=== PATIENT | male | born 1975 | race Caucasian/White ===

== ENCOUNTER 2017-01-06 02:05 | Inpatient (IN) | payer MEDICARE, MEDICAID ==
[~2017-01-06] VITALS: Ht 185.4 cm; Wt 116.6 kg
[~2017-01-06 02:05] MED LIST: DIVA500T52 PO; QUET300T2 PO
[2017-01-06 03:03] LABS: BASOPHILS # (AUTO) 0.03 K/uL (0.00-0.20); BASOPHILS % (AUTO) 0.4 % (0.0-2.0); EOSINOPHILS # (AUTO) 0.15 K/uL (0.00-0.70); EOSINOPHILS % (AUTO) 2.46 % (1.0-6.0); HEMATOCRIT 43.9 % (41-53); HEMOGLOBIN 14.6 g/dL (13.5-17.5); LYMPHOCYTES # (AUTO) 1.8 K/uL (1.0-4.8); LYMPHOCYTES % (AUTO) 30.1 % (22.0-44.0); MEAN CORPUSCULAR HEMOGLOBIN 29.3 pg (26.0-34.0); MEAN CORPUSCULAR HGB CONC 33.3 G/dL (31.0-37.0); MEAN CORPUSCULAR VOLUME 88 fL (80-100); MONOCYTES # (AUTO) 0.3 K/uL (0.1-1.0); MONOCYTES % (AUTO) 5.2 % (2.0-9.0); NEUTROPHILS # (AUTO) 3.8 K/uL (1.8-7.7); NEUTROPHILS % (AUTO) 61.8 % (40.0-70.0); PLATELET COUNT (AUTO) 170 K/uL (150-450); RED BLOOD CELL COUNT(AUTO) 4.98 MIL/uL (4.50-5.90); RED CELL DISTRIBUTION WIDTH 14.7 % (11.5-14.5); WHITE BLOOD COUNT (AUTO) 6.1 K/uL (4.5-11.0)
[2017-01-06 03:07] LABS: ANION GAP 10 mmol/L (8-16); CALCIUM, TOTAL 8.1 mg/dL (8.8-10.5); CARBON DIOXIDE 26 mmol/L (22-29); CHLORIDE 101 mmol/L (98-107); CREATININE 0.92 mg/dL (0.60-1.30); GLOMERULAR FILTR. RATE CALC > 60 mL/min (>60); POTASSIUM 3.1 mmol/L (3.5-5.1); SODIUM SERUM 137 mmol/L (136-145); UREA NITROGEN, BLOOD 5 mg/dL (7-18)
[2017-01-06 03:13] LABS: ALANINE AMINOTRANSFERASE 41 U/L (12-78); ALBUMIN 3.7 g/dL (3.4-5.0); ASPARTATE AMINOTRANSFERASE 24 U/L (15-37); BILIRUBIN,TOTAL 0.3 mg/dL (0.1-1.0)
[2017-01-06 03:28] LABS: VALPROIC ACID < 3 mcg/mL (50-100)
[2017-01-06] MEDS ORDERED: LORazepam 2 MG TABLET PO ONE (04:00)
[2017-01-06] MEDS ORDERED: HALOPERIDOL 5 MG TABLET PO ONE (04:00)
[2017-01-06] MEDS ORDERED: DiphenhydrAMINE HCL 25 MG CAPSULE PO ONE (04:00)
[2017-01-06 08:45] VITALS: BP 110/78
[2017-01-06] MEDS ORDERED: POTASSIUM CHLORIDE 20 MEQ ER TABLET PO ONE (09:00)
[2017-01-06] MEDS: DIVALPROEX SODIUM 500 MG ER TABLET PO SCH ×2 (10:24→20:34)
[2017-01-06] MEDS: QUEtiapine FUMARATE 300 MG TABLET PO SCH ×2 (10:24→20:34)
[2017-01-06] MEDS ORDERED: INFLUENZA VIRUS VACCINE QVS 2016-17 (3YR+)/PF 60 MCG/0.5 ML SYRINGE IM ONE (11:00)
[2017-01-07 06:13] VITALS: BP 131/75
[2017-01-07 08:05] VITALS: BP 128/65
[2017-01-07] MEDS: DIVALPROEX SODIUM 500 MG ER TABLET PO SCH ×2 (08:18→20:30)
[2017-01-07] MEDS: QUEtiapine FUMARATE 300 MG TABLET PO SCH ×2 (08:19→20:30)
[2017-01-07 08:34] LABS: ANION GAP 5 mmol/L (8-16); CALCIUM, TOTAL 8.9 mg/dL (8.8-10.5); CARBON DIOXIDE 32 mmol/L (22-29); CHLORIDE 102 mmol/L (98-107); CREATININE 0.94 mg/dL (0.60-1.30); GLOMERULAR FILTR. RATE CALC > 60 mL/min (>60); POTASSIUM 3.9 mmol/L (3.5-5.1); SODIUM SERUM 139 mmol/L (136-145); UREA NITROGEN, BLOOD 10 mg/dL (7-18)
[2017-01-07 16:00] VITALS: BP 110/64
[2017-01-08 06:45] VITALS: BP 116/70
[2017-01-08 08:06] VITALS: BP 118/64
[2017-01-08] MEDS: HALOPERIDOL 5 MG TABLET PO PRN (09:13)
[2017-01-08] MEDS: LORazepam 2 MG TABLET PO PRN (09:13)
[2017-01-08] MEDS: DIVALPROEX SODIUM 500 MG ER TABLET PO SCH ×2 (09:13→20:42)
[2017-01-08] MEDS: QUEtiapine FUMARATE 300 MG TABLET PO SCH ×2 (09:13→20:43)
[2017-01-08 16:00] VITALS: BP 102/62
[2017-01-09 06:17] VITALS: BP 115/72
[2017-01-09 08:04] VITALS: BP 132/71
[2017-01-09] MEDS: DIVALPROEX SODIUM 500 MG ER TABLET PO SCH ×2 (08:34→20:28)
[2017-01-09] MEDS: QUEtiapine FUMARATE 300 MG TABLET PO SCH ×2 (08:34→20:28)
[2017-01-09] MEDS: HALOPERIDOL 5 MG TABLET PO PRN (08:34)
[2017-01-09] MEDS: LORazepam 2 MG TABLET PO PRN ×2 (08:34→20:28)
[2017-01-09 16:37] VITALS: BP 97/65
[2017-01-09 19:58] VITALS: BP 105/62
[2017-01-10 05:29] VITALS: BP 112/75
[2017-01-10 08:43] VITALS: BP 103/65
[2017-01-10] MEDS: LORazepam 2 MG TABLET PO PRN ×2 (08:53→20:30)
[2017-01-10] MEDS: HALOPERIDOL 5 MG TABLET PO PRN (08:53)
[2017-01-10] MEDS: DIVALPROEX SODIUM 500 MG ER TABLET PO SCH ×2 (08:53→20:30)
[2017-01-10] MEDS: QUEtiapine FUMARATE 300 MG TABLET PO SCH ×2 (08:53→20:30)
[2017-01-10] MEDS ORDERED: BISACODYL 5 MG EC TABLET PO PRN (13:30)
[2017-01-10 16:00] VITALS: BP 110/68
[2017-01-11 07:10] VITALS: BP 114/72
[2017-01-11 08:22] VITALS: BP 120/68
[2017-01-11] MEDS ORDERED: ACETAMINOPHEN 500 MG TABLET PO PRN (09:30)
[2017-01-11] MEDS: LORazepam 2 MG TABLET PO PRN ×2 (09:39→20:23)
[2017-01-11] MEDS: QUEtiapine FUMARATE 300 MG TABLET PO SCH ×2 (09:39→20:23)
[2017-01-11] MEDS: DIVALPROEX SODIUM 500 MG ER TABLET PO SCH ×2 (09:39→20:22)
[2017-01-11 16:00] VITALS: BP 121/76
[2017-01-11] MEDS: ZOLPIDEM TARTRATE 10 MG TABLET PO PRN (20:23)
[2017-01-12 06:48] VITALS: BP 136/67
[2017-01-12 08:05] VITALS: BP 137/84
[2017-01-12] MEDS: QUEtiapine FUMARATE 300 MG TABLET PO SCH ×2 (09:22→20:31)
[2017-01-12] MEDS: DIVALPROEX SODIUM 500 MG ER TABLET PO SCH ×2 (09:22→20:31)
[2017-01-12 16:16] VITALS: BP 119/68
[2017-01-13 03:14] VITALS: BP 124/72
[2017-01-13 08:17] VITALS: BP 136/83
[2017-01-13] MEDS: QUEtiapine FUMARATE 300 MG TABLET PO SCH ×2 (08:31→20:46)
[2017-01-13] MEDS: DIVALPROEX SODIUM 500 MG ER TABLET PO SCH ×2 (08:31→20:46)
[2017-01-13] MEDS: LORazepam 2 MG TABLET PO PRN (08:31)
[2017-01-13] MEDS: HALOPERIDOL 5 MG TABLET PO PRN (08:31)
[2017-01-13 16:07] VITALS: BP 124/78
[2017-01-14 05:11] VITALS: BP 118/82
[2017-01-14 08:15] VITALS: BP 132/73
[2017-01-14] MEDS: QUEtiapine FUMARATE 300 MG TABLET PO SCH ×2 (09:28→20:12)
[2017-01-14] MEDS: LORazepam 2 MG TABLET PO PRN (09:28)
[2017-01-14] MEDS: DIVALPROEX SODIUM 500 MG ER TABLET PO SCH ×2 (09:28→20:12)
[2017-01-14 16:04] VITALS: BP 111/64
[2017-01-14] MEDS: ZOLPIDEM TARTRATE 10 MG TABLET PO PRN (20:12)
[2017-01-15 05:56] VITALS: BP 113/78
[2017-01-15 08:05] VITALS: BP 133/80
[2017-01-15] MEDS: QUEtiapine FUMARATE 300 MG TABLET PO SCH ×2 (09:48→20:37)
[2017-01-15] MEDS: DIVALPROEX SODIUM 500 MG ER TABLET PO SCH ×2 (09:48→20:37)
[2017-01-15] MEDS: LORazepam 2 MG TABLET PO PRN ×2 (09:48→20:37)
[2017-01-15 16:01] VITALS: BP 138/80
[2017-01-16 07:10] VITALS: BP 116/80
[2017-01-16 08:05] VITALS: BP 135/80
[2017-01-16] MEDS: LORazepam 2 MG TABLET PO PRN ×2 (09:26→16:57)
[2017-01-16] MEDS: QUEtiapine FUMARATE 300 MG TABLET PO SCH ×2 (09:26→21:18)
[2017-01-16] MEDS: DIVALPROEX SODIUM 500 MG ER TABLET PO SCH ×2 (09:26→21:18)
[2017-01-16 16:00] VITALS: BP 110/66
[2017-01-17 06:46] VITALS: BP 109/63
[2017-01-17 08:05] VITALS: BP 115/66
[2017-01-17] MEDS: LORazepam 2 MG TABLET PO PRN (08:50)
[2017-01-17] MEDS: QUEtiapine FUMARATE 300 MG TABLET PO SCH ×2 (08:50→20:36)
[2017-01-17] MEDS: DIVALPROEX SODIUM 500 MG ER TABLET PO SCH ×2 (08:50→20:36)
[2017-01-17 16:09] VITALS: BP 117/83
[2017-01-18 06:13] VITALS: BP 115/61
[2017-01-18 08:19] VITALS: BP 135/72
[2017-01-18 08:22] LABS: BASOPHILS % (AUTO) 0.4 % (0.0-2.0); EOSINOPHILS % (AUTO) 2.1 % (1.0-6.0); HEMATOCRIT 44.8 % (41-53); HEMOGLOBIN 14.8 g/dL (13.5-17.5); LYMPHOCYTES # (AUTO) 1.7 K/uL (1.0-4.8); LYMPHOCYTES % (AUTO) 31.9 % (22.0-44.0); MEAN CORPUSCULAR HEMOGLOBIN 29.2 pg (26.0-34.0); MEAN CORPUSCULAR VOLUME 89 fL (80-100); MONOCYTES # (AUTO) 0.4 K/uL (0.1-1.0); MONOCYTES % (AUTO) 7.6 % (2.0-9.0); NEUTROPHILS # (AUTO) 3.1 K/uL (1.8-7.7); PLATELET COUNT (AUTO) 126 K/uL (150-450); RED BLOOD CELL COUNT(AUTO) 5.06 MIL/uL (4.50-5.90); RED CELL DISTRIBUTION WIDTH 14.1 % (11.5-14.5); WHITE BLOOD COUNT (AUTO) 5.4 K/uL (4.5-11.0)
[2017-01-18] MEDS: DIVALPROEX SODIUM 500 MG ER TABLET PO SCH ×2 (09:19→20:33)
[2017-01-18] MEDS: LORazepam 2 MG TABLET PO PRN (09:19)
[2017-01-18] MEDS: QUEtiapine FUMARATE 300 MG TABLET PO SCH ×2 (09:19→20:33)
[2017-01-18 09:40] LABS: ALANINE AMINOTRANSFERASE 32 U/L (12-78); ALBUMIN 3.7 g/dL (3.4-5.0); ANION GAP 8 mmol/L (8-16); ASPARTATE AMINOTRANSFERASE 20 U/L (15-37); BILIRUBIN,TOTAL 0.3 mg/dL (0.1-1.0); CALCIUM, TOTAL 8.5 mg/dL (8.8-10.5); CARBON DIOXIDE 31 mmol/L (22-29); CHLORIDE 105 mmol/L (98-107); CREATINE KINASE MB 2.1 ng/mL (0-5); CREATINE KINASE, TOTAL 160 U/L (39-308); CREATININE 0.95 mg/dL (0.60-1.30); GLOMERULAR FILTR. RATE CALC > 60 mL/min (>60); POTASSIUM 3.6 mmol/L (3.5-5.1); SODIUM SERUM 144 mmol/L (136-145); TOTAL PROTEIN, SERUM 7.1 g/dL (6.4-8.2); UREA NITROGEN, BLOOD 9 mg/dL (7-18)
[2017-01-18 16:00] VITALS: BP 114/69
[2017-01-18] MEDS: ZOLPIDEM TARTRATE 10 MG TABLET PO PRN (20:33)
[2017-01-19 06:20] VITALS: BP 131/80
[2017-01-19 08:05] VITALS: BP 137/84
[2017-01-19] MEDS: LORazepam 2 MG TABLET PO PRN ×2 (09:35→20:42)
[2017-01-19] MEDS: DIVALPROEX SODIUM 500 MG ER TABLET PO SCH ×2 (09:35→20:42)
[2017-01-19] MEDS: QUEtiapine FUMARATE 300 MG TABLET PO SCH (09:35)
[2017-01-19 16:00] VITALS: BP 121/81
[2017-01-19] MEDS: QUEtiapine FUMARATE 200 MG TABLET PO SCH (20:42)
[2017-01-20 06:15] VITALS: BP 127/81
[2017-01-20 08:05] VITALS: BP 122/57
[2017-01-20] MEDS: DIVALPROEX SODIUM 500 MG ER TABLET PO SCH ×2 (09:47→20:33)
[2017-01-20] MEDS: LORazepam 2 MG TABLET PO PRN ×2 (09:48→20:34)
[2017-01-20] MEDS: QUEtiapine FUMARATE 200 MG TABLET PO SCH ×2 (09:48→20:33)
[2017-01-21 07:05] VITALS: BP 123/62
[2017-01-21 08:05] VITALS: BP 145/83
[2017-01-21] MEDS: QUEtiapine FUMARATE 200 MG TABLET PO SCH ×2 (08:10→20:27)
[2017-01-21] MEDS: DIVALPROEX SODIUM 500 MG ER TABLET PO SCH ×2 (08:10→20:27)
[2017-01-21 16:04] VITALS: BP 121/75
[2017-01-21] MEDS: LORazepam 2 MG TABLET PO PRN (20:27)
[2017-01-22 06:18] VITALS: BP 125/76
[2017-01-22 08:05] VITALS: BP 132/85
[2017-01-22] MEDS: QUEtiapine FUMARATE 200 MG TABLET PO SCH ×2 (09:28→20:26)
[2017-01-22] MEDS: DIVALPROEX SODIUM 500 MG ER TABLET PO SCH ×2 (09:28→20:26)
[2017-01-22 16:00] VITALS: BP 135/80
[2017-01-22] MEDS: LORazepam 2 MG TABLET PO PRN (20:26)
[2017-01-23 06:41] VITALS: BP 133/84
[2017-01-23] MEDS: QUEtiapine FUMARATE 200 MG TABLET PO SCH ×2 (08:22→21:04)
[2017-01-23] MEDS: DIVALPROEX SODIUM 500 MG ER TABLET PO SCH ×2 (08:22→21:04)
[2017-01-23 08:29] VITALS: BP 130/79
[2017-01-23 16:00] VITALS: BP 110/67
[2017-01-23] MEDS: LORazepam 2 MG TABLET PO PRN (17:14)
[2017-01-24 06:34] VITALS: BP 123/74
[2017-01-24 08:05] VITALS: BP 134/73
[2017-01-24] MEDS: DIVALPROEX SODIUM 500 MG ER TABLET PO SCH ×2 (09:40→20:29)
[2017-01-24] MEDS: LORazepam 2 MG TABLET PO PRN ×2 (09:40→20:29)
[2017-01-24] MEDS: QUEtiapine FUMARATE 200 MG TABLET PO SCH ×2 (09:41→20:29)
[2017-01-24 16:07] VITALS: BP 142/84
[2017-01-25 08:05] VITALS: BP 136/83
[2017-01-25] MEDS: LORazepam 2 MG TABLET PO PRN ×2 (09:16→20:27)
[2017-01-25] MEDS: QUEtiapine FUMARATE 200 MG TABLET PO SCH ×2 (09:16→20:27)
[2017-01-25] MEDS: DIVALPROEX SODIUM 500 MG ER TABLET PO SCH ×2 (09:16→20:27)
[2017-01-25 16:01] VITALS: BP 127/79
[2017-01-25] MEDS ORDERED: TUBERCULIN, PURIFIED PROTEIN DERIVATIVE 5 TU/0.1 ML SYG ID ONE (16:30)
[2017-01-26 07:15] VITALS: BP 121/78
[2017-01-26 08:05] VITALS: BP 136/80
[2017-01-26] MEDS: LORazepam 2 MG TABLET PO PRN ×2 (09:37→20:30)
[2017-01-26] MEDS: DIVALPROEX SODIUM 500 MG ER TABLET PO SCH ×2 (09:37→20:29)
[2017-01-26] MEDS: QUEtiapine FUMARATE 200 MG TABLET PO SCH ×2 (09:37→20:30)
[2017-01-26 16:00] VITALS: BP 123/76
[2017-01-27 06:30] VITALS: BP 127/84
[2017-01-27 08:26] VITALS: BP 117/68
[2017-01-27] MEDS: DIVALPROEX SODIUM 500 MG ER TABLET PO SCH ×2 (10:10→20:43)
[2017-01-27] MEDS: QUEtiapine FUMARATE 200 MG TABLET PO SCH ×2 (10:10→20:43)
[2017-01-27 16:00] VITALS: BP 124/77
[2017-01-27] MEDS: LORazepam 2 MG TABLET PO PRN (20:43)
[2017-01-28 06:27] VITALS: BP 133/76
[2017-01-28 08:21] VITALS: BP 126/73
[2017-01-28] MEDS: DIVALPROEX SODIUM 500 MG ER TABLET PO SCH ×2 (09:42→20:53)
[2017-01-28] MEDS: QUEtiapine FUMARATE 200 MG TABLET PO SCH ×2 (09:42→20:53)
[2017-01-28] MEDS ORDERED: BISMUTH SUBSALICYLATE 524 MG/30 ML SUSPENSION UDCUP PO PRN (13:15)
[2017-01-28 16:34] VITALS: BP 102/70
[2017-01-29 06:39] VITALS: BP 106/69
[2017-01-29 08:29] VITALS: BP 133/74
[2017-01-29] MEDS: LORazepam 2 MG TABLET PO PRN ×2 (09:12→20:35)
[2017-01-29] MEDS: QUEtiapine FUMARATE 200 MG TABLET PO SCH ×2 (09:12→20:35)
[2017-01-29] MEDS: DIVALPROEX SODIUM 500 MG ER TABLET PO SCH ×2 (09:12→20:34)
[2017-01-29 16:10] VITALS: BP 131/71
[2017-01-30 06:37] VITALS: BP 125/68
[2017-01-30 08:36] VITALS: BP 128/76
[2017-01-30] MEDS: QUEtiapine FUMARATE 200 MG TABLET PO SCH ×2 (09:06→20:53)
[2017-01-30] MEDS: DIVALPROEX SODIUM 500 MG ER TABLET PO SCH ×2 (09:06→20:53)
[2017-01-30 16:20] VITALS: BP 118/67
[2017-01-30] MEDS: LORazepam 2 MG TABLET PO PRN (20:53)
[2017-01-31 06:45] VITALS: BP 120/70
[2017-01-31 08:44] VITALS: BP 128/81
[2017-01-31] MEDS: DIVALPROEX SODIUM 500 MG ER TABLET PO SCH ×2 (11:22→20:25)
[2017-01-31] MEDS: QUEtiapine FUMARATE 200 MG TABLET PO SCH ×2 (11:22→20:25)
[2017-01-31] MEDS: LORazepam 2 MG TABLET PO PRN ×2 (11:22→20:25)
[2017-01-31 16:09] VITALS: BP 124/68
[2017-02-01 02:06] VITALS: BP 132/73
[2017-02-01 09:09] VITALS: BP 139/89
[2017-02-01] MEDS: LORazepam 2 MG TABLET PO PRN ×2 (09:24→21:08)
[2017-02-01] MEDS: QUEtiapine FUMARATE 200 MG TABLET PO SCH ×2 (09:24→21:07)
[2017-02-01] MEDS: DIVALPROEX SODIUM 500 MG ER TABLET PO SCH ×2 (09:24→21:07)
[2017-02-01 16:14] VITALS: BP 114/67
[2017-02-02 02:52] VITALS: BP 127/88
[2017-02-02 08:32] VITALS: BP 120/69
[2017-02-02] MEDS: LORazepam 2 MG TABLET PO PRN ×2 (09:31→20:36)
[2017-02-02] MEDS: QUEtiapine FUMARATE 200 MG TABLET PO SCH ×2 (09:31→20:36)
[2017-02-02] MEDS: DIVALPROEX SODIUM 500 MG ER TABLET PO SCH ×2 (09:31→20:36)
[2017-02-02 16:00] VITALS: BP 116/69
[2017-02-03 05:45] VITALS: BP 112/76
[2017-02-03 08:22] VITALS: BP 116/68
[2017-02-03] MEDS: LORazepam 2 MG TABLET PO PRN ×2 (08:40→20:35)
[2017-02-03] MEDS: QUEtiapine FUMARATE 200 MG TABLET PO SCH ×2 (08:40→20:35)
[2017-02-03] MEDS: DIVALPROEX SODIUM 500 MG ER TABLET PO SCH ×2 (08:41→20:35)
[2017-02-03 16:00] VITALS: BP 119/67
[2017-02-04 06:47] VITALS: BP 122/82
[2017-02-04 08:05] VITALS: BP 134/80
[2017-02-04] MEDS: QUEtiapine FUMARATE 200 MG TABLET PO SCH ×2 (08:22→20:26)
[2017-02-04] MEDS: DIVALPROEX SODIUM 500 MG ER TABLET PO SCH ×2 (08:22→20:26)
[2017-02-04 08:23] LABS: BASOPHILS % (AUTO) 0.5 % (0.0-2.0); EOSINOPHILS % (AUTO) 2.3 % (1.0-6.0); HEMATOCRIT 43.8 % (41-53); HEMOGLOBIN 14.5 g/dL (13.5-17.5); MEAN CORPUSCULAR HEMOGLOBIN 29.3 pg (26.0-34.0); MEAN CORPUSCULAR HGB CONC 33.1 G/dL (31.0-37.0); MEAN CORPUSCULAR VOLUME 88 fL (80-100); MONOCYTES # (AUTO) 0.5 K/uL (0.1-1.0); MONOCYTES % (AUTO) 7.8 % (2.0-9.0); NEUTROPHILS # (AUTO) 3.2 K/uL (1.8-7.7); NEUTROPHILS % (AUTO) 54.4 % (40.0-70.0); PLATELET COUNT (AUTO) 139 K/uL (150-450); RED BLOOD CELL COUNT(AUTO) 4.95 MIL/uL (4.50-5.90); RED CELL DISTRIBUTION WIDTH 14.5 % (11.5-14.5); WHITE BLOOD COUNT (AUTO) 5.8 K/uL (4.5-11.0)
[2017-02-04 09:09] LABS: ALANINE AMINOTRANSFERASE 24 U/L (12-78); ALBUMIN 3.6 g/dL (3.4-5.0); ANION GAP 10 mmol/L (8-16); ASPARTATE AMINOTRANSFERASE 18 U/L (15-37); BILIRUBIN,TOTAL 0.3 mg/dL (0.1-1.0); CARBON DIOXIDE 27 mmol/L (22-29); CHLORIDE 106 mmol/L (98-107); CREATINE KINASE MB 1.6 ng/mL (0-5); CREATINE KINASE, TOTAL 119 U/L (39-308); CREATININE 0.98 mg/dL (0.60-1.30); GLOMERULAR FILTR. RATE CALC > 60 mL/min (>60); POTASSIUM 4.1 mmol/L (3.5-5.1); SODIUM SERUM 143 mmol/L (136-145); TOTAL PROTEIN, SERUM 6.6 g/dL (6.4-8.2); UREA NITROGEN, BLOOD 10 mg/dL (7-18)
[2017-02-04 09:41] LABS: URIC ACID 5.1 mg/dL (2.6-7.2)
[2017-02-04 16:00] VITALS: BP 123/71
[2017-02-04] MEDS: LORazepam 2 MG TABLET PO PRN (20:26)
[2017-02-05 06:57] VITALS: BP 133/87
[2017-02-05 08:15] VITALS: BP 135/73
[2017-02-05] MEDS: DIVALPROEX SODIUM 500 MG ER TABLET PO SCH ×2 (08:38→20:10)
[2017-02-05] MEDS: QUEtiapine FUMARATE 200 MG TABLET PO SCH ×2 (08:38→20:10)
[2017-02-05 16:00] VITALS: BP 110/64
[2017-02-05] MEDS: LORazepam 2 MG TABLET PO PRN (20:10)
[2017-02-06 05:59] VITALS: BP 113/73
[2017-02-06 08:28] VITALS: BP 117/78
[2017-02-06] MEDS: QUEtiapine FUMARATE 200 MG TABLET PO SCH ×2 (08:50→21:33)
[2017-02-06] MEDS: DIVALPROEX SODIUM 500 MG ER TABLET PO SCH ×2 (08:50→21:33)
[2017-02-06] MEDS: LORazepam 2 MG TABLET PO PRN ×2 (08:50→17:12)
[2017-02-06 16:09] VITALS: BP 128/75
[2017-02-07 05:53] VITALS: BP 125/76
[2017-02-07] MEDS: DIVALPROEX SODIUM 500 MG ER TABLET PO SCH ×2 (08:43→21:54)
[2017-02-07] MEDS: QUEtiapine FUMARATE 200 MG TABLET PO SCH ×2 (08:44→21:54)
[2017-02-07] MEDS: LORazepam 2 MG TABLET PO PRN (08:44)
[2017-02-07 09:35] VITALS: BP 95/60
[2017-02-07 16:29] VITALS: BP 119/68
[2017-02-08 05:55] VITALS: BP 121/73
[2017-02-08] MEDS: QUEtiapine FUMARATE 200 MG TABLET PO SCH ×2 (08:05→20:22)
[2017-02-08] MEDS: DIVALPROEX SODIUM 500 MG ER TABLET PO SCH ×2 (08:05→20:22)
[2017-02-08 08:51] VITALS: BP 120/90
[2017-02-08 16:04] VITALS: BP 115/63
[2017-02-09 07:22] VITALS: BP 127/81
[2017-02-09 08:13] VITALS: BP 135/83
[2017-02-09] MEDS: DIVALPROEX SODIUM 500 MG ER TABLET PO SCH ×2 (09:49→20:26)
[2017-02-09] MEDS: QUEtiapine FUMARATE 200 MG TABLET PO SCH ×2 (09:49→20:26)
[2017-02-09] MEDS: LORazepam 2 MG TABLET PO PRN ×2 (09:49→20:26)
[2017-02-09 16:00] VITALS: BP 122/72
[2017-02-10 08:29] VITALS: BP 122/78
[2017-02-10] MEDS: QUEtiapine FUMARATE 200 MG TABLET PO SCH ×2 (08:48→20:32)
[2017-02-10] MEDS: DIVALPROEX SODIUM 500 MG ER TABLET PO SCH ×2 (08:48→20:32)
[2017-02-10 16:00] VITALS: BP 135/74
[2017-02-10] MEDS: LORazepam 2 MG TABLET PO PRN (20:32)
[2017-02-11 07:04] VITALS: BP 105/65
[2017-02-11 08:22] VITALS: BP 121/77
[2017-02-11] MEDS: DIVALPROEX SODIUM 500 MG ER TABLET PO SCH ×2 (09:17→20:00)
[2017-02-11] MEDS: QUEtiapine FUMARATE 200 MG TABLET PO SCH ×2 (09:17→20:00)
[2017-02-11 16:03] VITALS: BP 120/68
[2017-02-12 05:24] VITALS: BP 122/75
[2017-02-12 08:32] VITALS: BP 148/89
[2017-02-12] MEDS: QUEtiapine FUMARATE 200 MG TABLET PO SCH ×2 (08:48→20:27)
[2017-02-12] MEDS: DIVALPROEX SODIUM 500 MG ER TABLET PO SCH ×2 (08:48→20:27)
[2017-02-12 16:12] VITALS: BP 120/69
[2017-02-12] MEDS: LORazepam 2 MG TABLET PO PRN (20:27)
[2017-02-13 04:21] VITALS: BP 127/71
[2017-02-13 09:03] VITALS: BP 117/76
[2017-02-13] MEDS: QUEtiapine FUMARATE 200 MG TABLET PO SCH ×2 (09:13→20:44)
[2017-02-13] MEDS: LORazepam 2 MG TABLET PO PRN (09:13)
[2017-02-13] MEDS: DIVALPROEX SODIUM 500 MG ER TABLET PO SCH ×2 (09:13→20:44)
[2017-02-13 16:03] VITALS: BP 124/74
[2017-02-14 05:14] VITALS: BP 122/63
[2017-02-14 08:08] VITALS: BP 131/84
[2017-02-14] MEDS: QUEtiapine FUMARATE 200 MG TABLET PO SCH ×2 (08:50→20:02)
[2017-02-14] MEDS: DIVALPROEX SODIUM 500 MG ER TABLET PO SCH ×2 (08:50→20:02)
[2017-02-14] MEDS: LORazepam 2 MG TABLET PO PRN (08:51)
[2017-02-14 16:05] VITALS: BP 118/71
[2017-02-15] MEDS: DIVALPROEX SODIUM 500 MG ER TABLET PO SCH ×2 (08:31→20:12)
[2017-02-15] MEDS: QUEtiapine FUMARATE 200 MG TABLET PO SCH ×2 (08:31→20:12)
[2017-02-15 08:33] VITALS: BP 142/72
[2017-02-15 16:00] VITALS: BP 133/80
[2017-02-15] MEDS: LORazepam 2 MG TABLET PO PRN (16:03)
[2017-02-15] MEDS: HALOPERIDOL 5 MG TABLET PO PRN (16:03)
[2017-02-16 06:46] VITALS: BP 128/67
[2017-02-16 08:05] VITALS: BP 118/74
[2017-02-16] MEDS: QUEtiapine FUMARATE 200 MG TABLET PO SCH ×2 (09:46→20:44)
[2017-02-16] MEDS: DIVALPROEX SODIUM 500 MG ER TABLET PO SCH ×2 (09:46→20:44)
[2017-02-16] MEDS: LORazepam 2 MG TABLET PO PRN (09:47)
[2017-02-16] MEDS: HALOPERIDOL 5 MG TABLET PO PRN (09:47)
[2017-02-16 18:09] VITALS: BP 108/73
[2017-02-17 06:45] VITALS: BP 127/71
[2017-02-17 08:18] VITALS: BP 135/85
[2017-02-17] MEDS: QUEtiapine FUMARATE 200 MG TABLET PO SCH ×2 (10:00→20:44)
[2017-02-17] MEDS: DIVALPROEX SODIUM 500 MG ER TABLET PO SCH ×2 (10:00→20:44)
[2017-02-17 16:20] VITALS: BP 116/70
[2017-02-18 04:36] VITALS: BP 143/70
[2017-02-18 08:05] VITALS: BP 122/76
[2017-02-18] MEDS: DIVALPROEX SODIUM 500 MG ER TABLET PO SCH ×2 (09:05→20:15)
[2017-02-18] MEDS: QUEtiapine FUMARATE 200 MG TABLET PO SCH ×2 (09:05→20:15)
[2017-02-18 16:23] VITALS: BP 116/71
[2017-02-19 08:07] VITALS: BP 135/80
[2017-02-19] MEDS: QUEtiapine FUMARATE 200 MG TABLET PO SCH ×2 (08:16→20:23)
[2017-02-19] MEDS: DIVALPROEX SODIUM 500 MG ER TABLET PO SCH ×2 (08:16→20:23)
[2017-02-19 16:00] VITALS: BP 112/65
[2017-02-20] MEDS: QUEtiapine FUMARATE 200 MG TABLET PO SCH ×2 (08:18→20:28)
[2017-02-20] MEDS: DIVALPROEX SODIUM 500 MG ER TABLET PO SCH ×2 (08:18→20:28)
[2017-02-20 08:31] VITALS: BP 101/69
[2017-02-20 16:40] VITALS: BP 116/74
[2017-02-21 06:41] VITALS: BP 122/82
[2017-02-21] MEDS: DIVALPROEX SODIUM 500 MG ER TABLET PO SCH ×2 (08:13→20:15)
[2017-02-21] MEDS: QUEtiapine FUMARATE 200 MG TABLET PO SCH ×2 (08:13→20:15)
[2017-02-21 08:34] VITALS: BP 116/72
[2017-02-21 16:22] VITALS: BP 114/74
[2017-02-22 06:37] VITALS: BP 124/73
[2017-02-22 08:05] VITALS: BP 140/87
[2017-02-22] MEDS: QUEtiapine FUMARATE 200 MG TABLET PO SCH ×2 (08:35→20:27)
[2017-02-22] MEDS: DIVALPROEX SODIUM 500 MG ER TABLET PO SCH ×2 (08:35→20:27)
[2017-02-22 16:16] VITALS: BP 116/74
[2017-02-22] MEDS: LORazepam 2 MG TABLET PO PRN (16:39)
[2017-02-23 06:52] VITALS: BP 112/75
[2017-02-23 08:05] VITALS: BP 127/72
[2017-02-23] MEDS: DIVALPROEX SODIUM 500 MG ER TABLET PO SCH ×2 (09:10→20:33)
[2017-02-23] MEDS: QUEtiapine FUMARATE 200 MG TABLET PO SCH ×2 (09:10→20:33)
[2017-02-23 16:01] VITALS: BP 118/71
[2017-02-24 06:45] VITALS: BP 127/69
[2017-02-24 08:14] VITALS: BP 134/81
[2017-02-24] MEDS: DIVALPROEX SODIUM 500 MG ER TABLET PO SCH ×2 (08:35→20:37)
[2017-02-24] MEDS: QUEtiapine FUMARATE 200 MG TABLET PO SCH ×2 (08:35→20:37)
[2017-02-24 16:00] VITALS: BP 119/80
[2017-02-25 06:49] VITALS: BP 122/82
[2017-02-25] MEDS: QUEtiapine FUMARATE 200 MG TABLET PO SCH ×2 (08:11→20:20)
[2017-02-25] MEDS: DIVALPROEX SODIUM 500 MG ER TABLET PO SCH ×2 (08:11→20:20)
[2017-02-25 08:22] VITALS: BP 104/64
[2017-02-25 16:00] VITALS: BP 131/88
[2017-02-26 05:47] VITALS: BP 125/79
[2017-02-26] MEDS: QUEtiapine FUMARATE 200 MG TABLET PO SCH ×2 (07:54→20:38)
[2017-02-26] MEDS: DIVALPROEX SODIUM 500 MG ER TABLET PO SCH ×2 (07:54→20:38)
[2017-02-26 08:21] VITALS: BP 142/84
[2017-02-26 16:12] VITALS: BP 122/69
[2017-02-27 03:19] VITALS: BP 140/86
[2017-02-27] MEDS: DIVALPROEX SODIUM 500 MG ER TABLET PO SCH ×2 (08:02→20:51)
[2017-02-27] MEDS: QUEtiapine FUMARATE 200 MG TABLET PO SCH ×2 (08:02→20:51)
[2017-02-27 08:33] VITALS: BP 132/71
[2017-02-27 16:00] VITALS: BP 118/75
[2017-02-28 06:30] VITALS: BP 128/70
[2017-02-28 08:05] VITALS: BP 145/84
[2017-02-28] MEDS: DIVALPROEX SODIUM 500 MG ER TABLET PO SCH ×2 (08:23→20:15)
[2017-02-28] MEDS: QUEtiapine FUMARATE 200 MG TABLET PO SCH ×2 (08:24→20:15)
[2017-02-28 16:00] VITALS: BP 119/62
[2017-03-01 05:15] VITALS: BP 132/69
[2017-03-01] MEDS: QUEtiapine FUMARATE 200 MG TABLET PO SCH ×2 (08:34→20:14)
[2017-03-01] MEDS: DIVALPROEX SODIUM 500 MG ER TABLET PO SCH ×2 (08:34→20:14)
[2017-03-01 08:35] VITALS: BP 118/69
[2017-03-01 17:30] VITALS: BP 132/72
[2017-03-02 07:22] VITALS: BP 113/71
[2017-03-02 08:36] VITALS: BP 135/85
[2017-03-02] MEDS: QUEtiapine FUMARATE 200 MG TABLET PO SCH ×2 (09:07→20:41)
[2017-03-02] MEDS: DIVALPROEX SODIUM 500 MG ER TABLET PO SCH ×2 (09:07→20:41)
[2017-03-02 16:00] VITALS: BP 124/70
[2017-03-03 06:47] VITALS: BP 133/86
[2017-03-03 08:29] LABS: BASOPHILS # (AUTO) 0.02 K/uL (0.00-0.20); BASOPHILS % (AUTO) 0.4 % (0.0-2.0); EOSINOPHILS # (AUTO) 0.16 K/uL (0.00-0.70); EOSINOPHILS % (AUTO) 2.76 % (1.0-6.0); HEMATOCRIT 44.6 % (41-53); HEMOGLOBIN 15.3 g/dL (13.5-17.5); LYMPHOCYTES # (AUTO) 1.8 K/uL (1.0-4.8); LYMPHOCYTES % (AUTO) 32.3 % (22.0-44.0); MEAN CORPUSCULAR HEMOGLOBIN 29.9 pg (26.0-34.0); MEAN CORPUSCULAR HGB CONC 34.3 G/dL (31.0-37.0); MEAN CORPUSCULAR VOLUME 87 fL (80-100); MONOCYTES # (AUTO) 0.4 K/uL (0.1-1.0); MONOCYTES % (AUTO) 7.1 % (2.0-9.0); NEUTROPHILS # (AUTO) 3.2 K/uL (1.8-7.7); NEUTROPHILS % (AUTO) 57.5 % (40.0-70.0); PLATELET COUNT (AUTO) 164 K/uL (150-450); RED BLOOD CELL COUNT(AUTO) 5.11 MIL/uL (4.50-5.90); RED CELL DISTRIBUTION WIDTH 15.1 % (11.5-14.5); WHITE BLOOD COUNT (AUTO) 5.6 K/uL (4.5-11.0)
[2017-03-03] MEDS: QUEtiapine FUMARATE 200 MG TABLET PO SCH ×2 (08:31→20:46)
[2017-03-03] MEDS: DIVALPROEX SODIUM 500 MG ER TABLET PO SCH ×2 (08:32→20:46)
[2017-03-03] MEDS ORDERED: CloZAPine 25 MG TABLET PO SCH (09:00)
[2017-03-03 09:04] VITALS: BP 115/74
[2017-03-03 16:17] VITALS: BP 117/68
[2017-03-04 04:23] VITALS: BP 133/73
[2017-03-04 08:00] VITALS: BP 137/81
[2017-03-04] MEDS: DIVALPROEX SODIUM 500 MG ER TABLET PO SCH ×2 (08:46→20:25)
[2017-03-04] MEDS: QUEtiapine FUMARATE 200 MG TABLET PO SCH ×2 (08:46→20:25)
[2017-03-04] MEDS ORDERED: CloZAPine 25 MG TABLET PO SCH ×2 (09:00→21:00)
[2017-03-04 16:00] VITALS: BP 124/70
[2017-03-05 08:36] VITALS: BP 112/75
[2017-03-05] MEDS: QUEtiapine FUMARATE 200 MG TABLET PO SCH ×2 (08:36→20:37)
[2017-03-05] MEDS: DIVALPROEX SODIUM 500 MG ER TABLET PO SCH ×2 (08:36→20:37)
[2017-03-05] MEDS ORDERED: CloZAPine 25 MG TABLET PO SCH ×2 (09:00→21:00)
[2017-03-05 16:00] VITALS: BP 108/65
[2017-03-06 05:23] VITALS: BP 115/70
[2017-03-06] MEDS: QUEtiapine FUMARATE 200 MG TABLET PO SCH ×2 (09:03→20:24)
[2017-03-06] MEDS: DIVALPROEX SODIUM 500 MG ER TABLET PO SCH ×2 (09:03→20:24)
[2017-03-06] MEDS: CloZAPine 25 MG TABLET PO SCH ×2 (09:05→20:24)
[2017-03-06 09:25] VITALS: BP 135/82
[2017-03-06 16:00] VITALS: BP 112/68
[2017-03-07 06:33] VITALS: BP 143/97
[2017-03-07 08:37] VITALS: BP 122/76
[2017-03-07] MEDS: QUEtiapine FUMARATE 200 MG TABLET PO SCH ×2 (08:37→20:17)
[2017-03-07] MEDS: DIVALPROEX SODIUM 500 MG ER TABLET PO SCH ×2 (08:37→20:16)
[2017-03-07] MEDS: CloZAPine 25 MG TABLET PO SCH ×2 (08:37→20:16)
[2017-03-07 16:00] VITALS: BP 119/69
[2017-03-08 07:12] VITALS: BP 129/76
[2017-03-08 08:28] VITALS: BP 119/79
[2017-03-08] MEDS ORDERED: CloZAPine 25 MG TABLET PO SCH (09:00)
[2017-03-08] MEDS: DIVALPROEX SODIUM 500 MG ER TABLET PO SCH ×2 (09:24→20:33)
[2017-03-08] MEDS: QUEtiapine FUMARATE 200 MG TABLET PO SCH ×2 (09:24→20:33)
[2017-03-08 16:14] VITALS: BP 134/89
[2017-03-08] MEDS ORDERED: CloZAPine 100 MG TABLET PO SCH (21:00)
[2017-03-09 07:12] VITALS: BP 121/79
[2017-03-09 08:34] VITALS: BP 142/92
[2017-03-09] MEDS: DIVALPROEX SODIUM 500 MG ER TABLET PO SCH ×2 (08:45→20:12)
[2017-03-09] MEDS: QUEtiapine FUMARATE 200 MG TABLET PO SCH ×2 (08:45→20:12)
[2017-03-09] MEDS ORDERED: CloZAPine 25 MG TABLET PO SCH (09:00)
[2017-03-09 16:10] VITALS: BP 135/75
[2017-03-09] MEDS ORDERED: CloZAPine 100 MG TABLET PO SCH (21:00)
[2017-03-10 05:30] VITALS: BP 132/79
[2017-03-10 07:37] LABS: BASOPHILS % (AUTO) 0.7 % (0.0-2.0); EOSINOPHILS % (AUTO) 3.7 % (1.0-6.0); HEMATOCRIT 44.8 % (41-53); HEMOGLOBIN 14.7 g/dL (13.5-17.5); LYMPHOCYTES # (AUTO) 1.8 K/uL (1.0-4.8); LYMPHOCYTES % (AUTO) 41.3 % (22.0-44.0); MEAN CORPUSCULAR HEMOGLOBIN 29.1 pg (26.0-34.0); MEAN CORPUSCULAR HGB CONC 32.9 G/dL (31.0-37.0); MEAN CORPUSCULAR VOLUME 89 fL (80-100); MONOCYTES # (AUTO) 0.6 K/uL (0.1-1.0); MONOCYTES % (AUTO) 14.5 % (2.0-9.0); NEUTROPHILS # (AUTO) 1.7 K/uL (1.8-7.7); NEUTROPHILS % (AUTO) 39.8 % (40.0-70.0); PLATELET COUNT (AUTO) 142 K/uL (150-450); RED BLOOD CELL COUNT(AUTO) 5.06 MIL/uL (4.50-5.90); RED CELL DISTRIBUTION WIDTH 14.8 % (11.5-14.5); WHITE BLOOD COUNT (AUTO) 4.3 K/uL (4.5-11.0)
[2017-03-10] MEDS ORDERED: CloZAPine 25 MG TABLET PO SCH (09:00)
[2017-03-10] MEDS: DIVALPROEX SODIUM 500 MG ER TABLET PO SCH ×2 (09:14→20:35)
[2017-03-10] MEDS: QUEtiapine FUMARATE 200 MG TABLET PO SCH ×2 (09:14→20:35)
[2017-03-10 09:47] VITALS: BP 147/63
[2017-03-10 16:00] VITALS: BP 159/86
[2017-03-10] MEDS ORDERED: CloZAPine 100 MG TABLET PO SCH (21:00)
[2017-03-11 08:19] VITALS: BP 124/78
[2017-03-11] MEDS: QUEtiapine FUMARATE 200 MG TABLET PO SCH ×2 (08:34→20:36)
[2017-03-11] MEDS: CloZAPine 100 MG TABLET PO SCH ×2 (08:34→20:37)
[2017-03-11] MEDS: DIVALPROEX SODIUM 500 MG ER TABLET PO SCH ×2 (08:34→20:36)
[2017-03-11 16:15] VITALS: BP 118/72
[2017-03-12 06:21] VITALS: BP 127/82
[2017-03-12] MEDS: CloZAPine 100 MG TABLET PO SCH ×2 (08:36→20:35)
[2017-03-12] MEDS: DIVALPROEX SODIUM 500 MG ER TABLET PO SCH ×2 (08:36→20:35)
[2017-03-12] MEDS: QUEtiapine FUMARATE 200 MG TABLET PO SCH ×2 (08:36→20:35)
[2017-03-12 08:41] VITALS: BP 124/64
[2017-03-12 16:00] VITALS: BP 123/81
[2017-03-12] MEDS: LORazepam 2 MG TABLET PO PRN (18:11)
[2017-03-12] MEDS: HALOPERIDOL 5 MG TABLET PO PRN (18:11)
[2017-03-13 06:00] VITALS: BP 122/76
[2017-03-13 08:27] VITALS: BP 131/66
[2017-03-13] MEDS: QUEtiapine FUMARATE 200 MG TABLET PO SCH ×2 (08:48→20:13)
[2017-03-13] MEDS: DIVALPROEX SODIUM 500 MG ER TABLET PO SCH ×2 (08:49→20:13)
[2017-03-13] MEDS ORDERED: CloZAPine 25 MG TABLET PO SCH (09:00)
[2017-03-13 16:00] VITALS: BP 127/70
[2017-03-13] MEDS ORDERED: CloZAPine 100 MG TABLET PO SCH (21:00)
[2017-03-14 06:25] VITALS: BP 140/75
[2017-03-14 08:40] VITALS: BP 133/88
[2017-03-14 08:43] LABS: BASOPHILS # (AUTO) 0.03 K/uL (0.00-0.20); BASOPHILS % (AUTO) 0.8 % (0.0-2.0); EOSINOPHILS # (AUTO) 0.13 K/uL (0.00-0.70); EOSINOPHILS % (AUTO) 2.76 % (1.0-6.0); HEMATOCRIT 41.7 % (41-53); HEMOGLOBIN 14.1 g/dL (13.5-17.5); LYMPHOCYTES % (AUTO) 43.3 % (22.0-44.0); MEAN CORPUSCULAR HEMOGLOBIN 29.9 pg (26.0-34.0); MEAN CORPUSCULAR HGB CONC 33.9 G/dL (31.0-37.0); MEAN CORPUSCULAR VOLUME 88 fL (80-100); MONOCYTES # (AUTO) 0.6 K/uL (0.1-1.0); MONOCYTES % (AUTO) 12.5 % (2.0-9.0); NEUTROPHILS # (AUTO) 1.8 K/uL (1.8-7.7); NEUTROPHILS % (AUTO) 40.7 % (40.0-70.0); PLATELET COUNT (AUTO) 141 K/uL (150-450); RED BLOOD CELL COUNT(AUTO) 4.73 MIL/uL (4.50-5.90); WHITE BLOOD COUNT (AUTO) 4.5 K/uL (4.5-11.0)
[2017-03-14] MEDS: QUEtiapine FUMARATE 200 MG TABLET PO SCH ×2 (08:48→20:06)
[2017-03-14] MEDS: DIVALPROEX SODIUM 500 MG ER TABLET PO SCH ×2 (08:48→20:06)
[2017-03-14] MEDS ORDERED: CloZAPine 25 MG TABLET PO SCH (09:00)
[2017-03-14 09:25] LABS: ALANINE AMINOTRANSFERASE 245 U/L (12-78); ALBUMIN 3.2 g/dL (3.4-5.0); ANION GAP 14 mmol/L (8-16); ASPARTATE AMINOTRANSFERASE 118 U/L (15-37); BILIRUBIN,TOTAL 0.4 mg/dL (0.1-1.0); CALCIUM, TOTAL 8.5 mg/dL (8.8-10.5); CARBON DIOXIDE 24 mmol/L (22-29); CHLORIDE 106 mmol/L (98-107); CREATINE KINASE MB 1.9 ng/mL (0-5); CREATINE KINASE, TOTAL 155 U/L (39-308); CREATININE 0.97 mg/dL (0.60-1.30); GLOMERULAR FILTR. RATE CALC > 60 mL/min (>60); POTASSIUM 3.6 mmol/L (3.5-5.1); SODIUM SERUM 144 mmol/L (136-145); UREA NITROGEN, BLOOD 13 mg/dL (7-18)
[2017-03-14 16:11] VITALS: BP 134/66
[2017-03-14] MEDS ORDERED: CloZAPine 100 MG TABLET PO SCH (21:00)
[2017-03-15 06:49] VITALS: BP 123/78
[2017-03-15 08:11] VITALS: BP 137/75
[2017-03-15] MEDS: CloZAPine 100 MG TABLET PO SCH ×2 (09:22→20:52)
[2017-03-15] MEDS: QUEtiapine FUMARATE 200 MG TABLET PO SCH ×2 (09:22→20:52)
[2017-03-15] MEDS: DIVALPROEX SODIUM 500 MG ER TABLET PO SCH ×2 (09:22→20:52)
[2017-03-15 16:25] VITALS: BP 148/84
[2017-03-16 01:57] VITALS: BP 134/68
[2017-03-16] MEDS: QUEtiapine FUMARATE 200 MG TABLET PO SCH ×2 (08:20→20:11)
[2017-03-16] MEDS: CloZAPine 100 MG TABLET PO SCH ×2 (08:20→20:12)
[2017-03-16] MEDS: DIVALPROEX SODIUM 500 MG ER TABLET PO SCH ×2 (08:20→20:11)
[2017-03-16 09:07] VITALS: BP 146/96
[2017-03-16 16:28] VITALS: BP 131/71
[2017-03-17 06:48] VITALS: BP 128/83
[2017-03-17 08:14] VITALS: BP 116/87
[2017-03-17 08:25] LABS: HEMATOCRIT 41.4 % (41-53); HEMOGLOBIN 13.8 g/dL (13.5-17.5); MEAN CORPUSCULAR HEMOGLOBIN 29.6 pg (26.0-34.0); MEAN CORPUSCULAR VOLUME 89 fL (80-100); RED BLOOD CELL COUNT(AUTO) 4.66 MIL/uL (4.50-5.90); WHITE BLOOD COUNT (AUTO) 4.8 K/uL (4.5-11.0)
[2017-03-17 08:26] LABS: BASOPHILS % (AUTO) 0.6 % (0.0-2.0); EOSINOPHILS % (AUTO) 4.4 % (1.0-6.0); LYMPHOCYTES # (AUTO) 1.8 K/uL (1.0-4.8); LYMPHOCYTES % (AUTO) 37.4 % (22.0-44.0); MEAN CORPUSCULAR HGB CONC 33.3 G/dL (31.0-37.0); MONOCYTES # (AUTO) 0.5 K/uL (0.1-1.0); MONOCYTES % (AUTO) 10.8 % (2.0-9.0); NEUTROPHILS # (AUTO) 2.2 K/uL (1.8-7.7); NEUTROPHILS % (AUTO) 46.8 % (40.0-70.0); PLATELET COUNT (AUTO) 140 K/uL (150-450); RED CELL DISTRIBUTION WIDTH 14.7 % (11.5-14.5)
[2017-03-17] MEDS: DIVALPROEX SODIUM 500 MG ER TABLET PO SCH ×2 (09:14→20:23)
[2017-03-17] MEDS: CloZAPine 100 MG TABLET PO SCH ×2 (09:14→20:24)
[2017-03-17] MEDS: QUEtiapine FUMARATE 200 MG TABLET PO SCH ×2 (09:14→20:23)
[2017-03-17 16:21] VITALS: BP 111/66
[2017-03-18 07:21] VITALS: BP 134/79
[2017-03-18 08:11] VITALS: BP 130/86
[2017-03-18] MEDS: DIVALPROEX SODIUM 500 MG ER TABLET PO SCH ×2 (08:17→20:12)
[2017-03-18] MEDS: CloZAPine 100 MG TABLET PO SCH ×2 (08:17→20:12)
[2017-03-18] MEDS: QUEtiapine FUMARATE 200 MG TABLET PO SCH ×2 (08:17→20:12)
[2017-03-18 16:00] VITALS: BP 136/76
[2017-03-19 06:58] VITALS: BP 112/68
[2017-03-19 08:10] VITALS: BP 133/76
[2017-03-19] MEDS: DIVALPROEX SODIUM 500 MG ER TABLET PO SCH ×2 (08:48→21:18)
[2017-03-19] MEDS: CloZAPine 100 MG TABLET PO SCH ×2 (08:48→21:18)
[2017-03-19] MEDS: QUEtiapine FUMARATE 200 MG TABLET PO SCH ×2 (08:48→21:18)
[2017-03-19 16:00] VITALS: BP 129/79
[2017-03-20 06:47] VITALS: BP 124/84
[2017-03-20 08:11] VITALS: BP 128/76
[2017-03-20] MEDS: CloZAPine 100 MG TABLET PO SCH ×2 (08:49→20:51)
[2017-03-20] MEDS: DIVALPROEX SODIUM 500 MG ER TABLET PO SCH ×2 (08:49→20:51)
[2017-03-20] MEDS: QUEtiapine FUMARATE 200 MG TABLET PO SCH ×2 (08:49→20:51)
[2017-03-20 16:00] VITALS: BP 110/61
[2017-03-21 04:03] VITALS: BP 120/72
[2017-03-21] MEDS: DIVALPROEX SODIUM 500 MG ER TABLET PO SCH ×2 (08:18→20:48)
[2017-03-21] MEDS: QUEtiapine FUMARATE 200 MG TABLET PO SCH ×2 (08:18→20:48)
[2017-03-21] MEDS: CloZAPine 100 MG TABLET PO SCH ×2 (08:18→20:48)
[2017-03-21 08:35] VITALS: BP 104/65
[2017-03-21 16:00] VITALS: BP 113/68
[2017-03-22 06:00] VITALS: BP 122/76
[2017-03-22 08:00] VITALS: BP 133/80
[2017-03-22] MEDS: QUEtiapine FUMARATE 200 MG TABLET PO SCH ×2 (09:09→20:37)
[2017-03-22] MEDS: CloZAPine 100 MG TABLET PO SCH ×2 (09:09→20:37)
[2017-03-22] MEDS: DIVALPROEX SODIUM 500 MG ER TABLET PO SCH ×2 (09:09→20:37)
[2017-03-22 16:00] VITALS: BP 113/63
[2017-03-23 05:00] VITALS: BP 130/79
[2017-03-23 08:15] VITALS: BP 136/71
[2017-03-23 08:18] LABS: ALANINE AMINOTRANSFERASE 127 U/L (12-78); ALBUMIN 3.5 g/dL (3.4-5.0); ANION GAP 10 mmol/L (8-16); ASPARTATE AMINOTRANSFERASE 63 U/L (15-37); BILIRUBIN,TOTAL 0.4 mg/dL (0.1-1.0); CALCIUM, TOTAL 8.7 mg/dL (8.8-10.5); CARBON DIOXIDE 28 mmol/L (22-29); CHLORIDE 105 mmol/L (98-107); CREATININE 0.95 mg/dL (0.60-1.30); GLOMERULAR FILTR. RATE CALC > 60 mL/min (>60); SODIUM SERUM 143 mmol/L (136-145); TOTAL PROTEIN, SERUM 7.3 g/dL (6.4-8.2)
[2017-03-23 08:26] LABS: UREA NITROGEN, BLOOD 17 mg/dL (7-18)
[2017-03-23] MEDS: CloZAPine 100 MG TABLET PO SCH ×2 (08:28→20:29)
[2017-03-23] MEDS: QUEtiapine FUMARATE 200 MG TABLET PO SCH ×2 (08:28→20:29)
[2017-03-23] MEDS: DIVALPROEX SODIUM 500 MG ER TABLET PO SCH ×2 (08:28→20:29)
[2017-03-23 16:27] VITALS: BP 104/65
[2017-03-24 06:23] VITALS: BP 132/81
[2017-03-24 07:57] LABS: BASOPHILS % (AUTO) 0.8 % (0.0-2.0); EOSINOPHILS % (AUTO) 3.5 % (1.0-6.0); HEMATOCRIT 42.4 % (41-53); LYMPHOCYTES # (AUTO) 2.1 K/uL (1.0-4.8); LYMPHOCYTES % (AUTO) 36.4 % (22.0-44.0); MEAN CORPUSCULAR HEMOGLOBIN 29.3 pg (26.0-34.0); MEAN CORPUSCULAR VOLUME 89 fL (80-100); MONOCYTES # (AUTO) 0.6 K/uL (0.1-1.0); NEUTROPHILS # (AUTO) 2.7 K/uL (1.8-7.7); NEUTROPHILS % (AUTO) 48.3 % (40.0-70.0); PLATELET COUNT (AUTO) 138 K/uL (150-450); RED BLOOD CELL COUNT(AUTO) 4.77 MIL/uL (4.50-5.90); RED CELL DISTRIBUTION WIDTH 14.8 % (11.5-14.5); WHITE BLOOD COUNT (AUTO) 5.7 K/uL (4.5-11.0)
[2017-03-24 08:44] VITALS: BP 160/68
[2017-03-24] MEDS: DIVALPROEX SODIUM 500 MG ER TABLET PO SCH ×2 (09:43→20:36)
[2017-03-24] MEDS: CloZAPine 100 MG TABLET PO SCH ×2 (09:43→20:36)
[2017-03-24] MEDS: QUEtiapine FUMARATE 200 MG TABLET PO SCH ×2 (09:43→20:36)
[2017-03-24 16:13] VITALS: BP 134/78
[2017-03-25 04:58] VITALS: BP 132/83
[2017-03-25 08:47] VITALS: BP 113/72
[2017-03-25] MEDS: DIVALPROEX SODIUM 500 MG ER TABLET PO SCH ×2 (09:00→20:06)
[2017-03-25] MEDS: QUEtiapine FUMARATE 200 MG TABLET PO SCH ×2 (09:00→20:06)
[2017-03-25] MEDS: CloZAPine 100 MG TABLET PO SCH ×2 (09:01→20:07)
[2017-03-25 16:07] VITALS: BP 118/73
[2017-03-26 05:22] VITALS: BP 122/82
[2017-03-26] MEDS: QUEtiapine FUMARATE 200 MG TABLET PO SCH ×2 (08:58→20:17)
[2017-03-26] MEDS: CloZAPine 100 MG TABLET PO SCH ×2 (08:58→20:18)
[2017-03-26] MEDS: DIVALPROEX SODIUM 500 MG ER TABLET PO SCH ×2 (08:58→20:17)
[2017-03-26 16:11] VITALS: BP 131/86
[2017-03-27 03:13] VITALS: BP 129/77
[2017-03-27] MEDS: CloZAPine 100 MG TABLET PO SCH ×2 (08:42→20:47)
[2017-03-27] MEDS: QUEtiapine FUMARATE 200 MG TABLET PO SCH ×2 (08:42→20:47)
[2017-03-27] MEDS: DIVALPROEX SODIUM 500 MG ER TABLET PO SCH ×2 (08:42→20:47)
[2017-03-27 08:45] VITALS: BP 144/86
[2017-03-27 16:15] VITALS: BP 114/69
[2017-03-28 05:55] VITALS: BP_SYST 110; BP_SYST 134; BP_DIAS 70; BP_DIAS 76
[2017-03-28] MEDS: CloZAPine 100 MG TABLET PO SCH ×2 (08:03→20:51)
[2017-03-28] MEDS: DIVALPROEX SODIUM 500 MG ER TABLET PO SCH ×2 (08:03→20:51)
[2017-03-28] MEDS: QUEtiapine FUMARATE 200 MG TABLET PO SCH ×2 (08:03→20:52)
[2017-03-28 08:11] VITALS: BP 124/83
[2017-03-28] MEDS ORDERED: CloNIDine HCL 0.1 MG TABLET PO PRN (16:00)
[2017-03-28 16:05] VITALS: BP 161/111
[2017-03-29 05:51] VITALS: BP 140/92
[2017-03-29 08:00] VITALS: BP 121/70
[2017-03-29] MEDS: CloZAPine 100 MG TABLET PO SCH ×2 (09:36→20:50)
[2017-03-29] MEDS: QUEtiapine FUMARATE 200 MG TABLET PO SCH ×2 (09:36→20:51)
[2017-03-29] MEDS: DIVALPROEX SODIUM 500 MG ER TABLET PO SCH ×2 (09:36→20:51)
[2017-03-29 09:43] LABS: ALANINE AMINOTRANSFERASE 120 U/L (12-78); ALBUMIN 3.5 g/dL (3.4-5.0); ANION GAP 10 mmol/L (8-16); ASPARTATE AMINOTRANSFERASE 57 U/L (15-37); BILIRUBIN,TOTAL 0.4 mg/dL (0.1-1.0); CALCIUM, TOTAL 8.4 mg/dL (8.8-10.5); CARBON DIOXIDE 26 mmol/L (22-29); CHLORIDE 105 mmol/L (98-107); CREATINE KINASE MB 1.5 ng/mL (0-5); CREATINE KINASE, TOTAL 198 U/L (39-308); CREATININE 0.94 mg/dL (0.60-1.30); GLOMERULAR FILTR. RATE CALC > 60 mL/min (>60); POTASSIUM 3.9 mmol/L (3.5-5.1); SODIUM SERUM 141 mmol/L (136-145); TOTAL PROTEIN, SERUM 6.9 g/dL (6.4-8.2); UREA NITROGEN, BLOOD 14 mg/dL (7-18)
[2017-03-29 16:00] VITALS: BP 128/74
[2017-03-30] MEDS: BENZOCAINE/MENTHOL LOZENGE PO PRN (05:31)
[2017-03-30 07:15] VITALS: BP 146/86
[2017-03-30 09:03] VITALS: BP 113/82
[2017-03-30] MEDS: DIVALPROEX SODIUM 500 MG ER TABLET PO SCH ×2 (09:14→20:26)
[2017-03-30] MEDS: CloZAPine 100 MG TABLET PO SCH ×2 (09:14→20:26)
[2017-03-30] MEDS: QUEtiapine FUMARATE 200 MG TABLET PO SCH ×2 (09:14→20:26)
[2017-03-30] MEDS ORDERED: ACETAMINOPHEN 325 MG TABLET PO PRN (14:45)
[2017-03-30 16:07] VITALS: BP 127/71
[2017-03-31 06:04] VITALS: BP 134/73
[2017-03-31 08:17] LABS: BASOPHILS # (AUTO) 0.02 K/uL (0.00-0.20); BASOPHILS % (AUTO) 0.5 % (0.0-2.0); EOSINOPHILS # (AUTO) 0.35 K/uL (0.00-0.70); EOSINOPHILS % (AUTO) 7.11 % (1.0-6.0); HEMATOCRIT 42.7 % (41-53); HEMOGLOBIN 14.2 g/dL (13.5-17.5); LYMPHOCYTES # (AUTO) 1.1 K/uL (1.0-4.8); LYMPHOCYTES % (AUTO) 22.4 % (22.0-44.0); MEAN CORPUSCULAR HEMOGLOBIN 29.8 pg (26.0-34.0); MEAN CORPUSCULAR HGB CONC 33.4 G/dL (31.0-37.0); MEAN CORPUSCULAR VOLUME 89 fL (80-100); MONOCYTES # (AUTO) 0.7 K/uL (0.1-1.0); MONOCYTES % (AUTO) 14.8 % (2.0-9.0); NEUTROPHILS # (AUTO) 2.7 K/uL (1.8-7.7); NEUTROPHILS % (AUTO) 55.2 % (40.0-70.0); PLATELET COUNT (AUTO) 146 K/uL (150-450); RED BLOOD CELL COUNT(AUTO) 4.78 MIL/uL (4.50-5.90); RED CELL DISTRIBUTION WIDTH 14.8 % (11.5-14.5); WHITE BLOOD COUNT (AUTO) 4.9 K/uL (4.5-11.0)
[2017-03-31 08:24] VITALS: BP 126/70
[2017-03-31] MEDS: QUEtiapine FUMARATE 200 MG TABLET PO SCH ×2 (09:07→20:31)
[2017-03-31] MEDS: CloZAPine 100 MG TABLET PO SCH ×2 (09:07→20:31)
[2017-03-31] MEDS: DIVALPROEX SODIUM 500 MG ER TABLET PO SCH ×2 (09:08→20:31)
[2017-03-31 13:12] VITALS: BP 145/85
[2017-03-31] MEDS: IBUPROFEN 600 MG TABLET PO PRN (13:12)
[2017-03-31 16:33] VITALS: BP 110/71
[2017-03-31] MEDS: BENZOCAINE/MENTHOL LOZENGE PO PRN (20:31)
[2017-04-01 06:02] VITALS: BP 116/82
[2017-04-01] MEDS: IBUPROFEN 600 MG TABLET PO PRN (07:07)
[2017-04-01] MEDS: CloZAPine 100 MG TABLET PO SCH ×2 (08:18→20:33)
[2017-04-01] MEDS: LORazepam 2 MG TABLET PO PRN (08:18)
[2017-04-01] MEDS: QUEtiapine FUMARATE 200 MG TABLET PO SCH ×2 (08:18→20:33)
[2017-04-01] MEDS: DIVALPROEX SODIUM 500 MG ER TABLET PO SCH ×2 (08:18→20:33)
[2017-04-01] MEDS: HALOPERIDOL 5 MG TABLET PO PRN (08:18)
[2017-04-01 08:25] VITALS: BP 119/66
[2017-04-01] MEDS: ZOLPIDEM TARTRATE 10 MG TABLET PO PRN (20:33)
[2017-04-02 08:32] VITALS: BP 134/79
[2017-04-02] MEDS: DIVALPROEX SODIUM 500 MG ER TABLET PO SCH ×2 (09:56→20:12)
[2017-04-02] MEDS: QUEtiapine FUMARATE 200 MG TABLET PO SCH ×2 (09:56→20:13)
[2017-04-02] MEDS: CloZAPine 100 MG TABLET PO SCH ×2 (09:56→20:13)
[2017-04-02 16:15] VITALS: BP 135/76
[2017-04-03 01:52] VITALS: BP 114/73
[2017-04-03] MEDS: IBUPROFEN 600 MG TABLET PO PRN (01:52)
[2017-04-03 09:01] VITALS: BP 113/67
[2017-04-03] MEDS: QUEtiapine FUMARATE 200 MG TABLET PO SCH ×2 (09:09→20:48)
[2017-04-03] MEDS: DIVALPROEX SODIUM 500 MG ER TABLET PO SCH ×2 (09:09→20:48)
[2017-04-03] MEDS: CloZAPine 100 MG TABLET PO SCH ×2 (09:10→20:48)
[2017-04-03 16:00] VITALS: BP 134/77
[2017-04-04 06:14] VITALS: BP 110/69
[2017-04-04 08:29] LABS: ALANINE AMINOTRANSFERASE 111 U/L (12-78); ALBUMIN 3.1 g/dL (3.4-5.0); ANION GAP 9 mmol/L (8-16); ASPARTATE AMINOTRANSFERASE 49 U/L (15-37); BILIRUBIN,TOTAL 0.3 mg/dL (0.1-1.0); CALCIUM, TOTAL 8.1 mg/dL (8.8-10.5); CARBON DIOXIDE 28 mmol/L (22-29); CHLORIDE 105 mmol/L (98-107); CREATINE KINASE MB 1.4 ng/mL (0-5); CREATINE KINASE, TOTAL 110 U/L (39-308); CREATININE 0.99 mg/dL (0.60-1.30); GLOMERULAR FILTR. RATE CALC > 60 mL/min (>60); POTASSIUM 3.9 mmol/L (3.5-5.1); SODIUM SERUM 142 mmol/L (136-145); TOTAL PROTEIN, SERUM 6.5 g/dL (6.4-8.2); UREA NITROGEN, BLOOD 16 mg/dL (7-18)
[2017-04-04] MEDS: DIVALPROEX SODIUM 500 MG ER TABLET PO SCH ×2 (09:05→20:05)
[2017-04-04] MEDS: CloZAPine 100 MG TABLET PO SCH ×2 (09:06→20:05)
[2017-04-04] MEDS: QUEtiapine FUMARATE 200 MG TABLET PO SCH ×2 (09:06→20:05)
[2017-04-04 09:17] VITALS: BP 128/82
[2017-04-04 16:00] VITALS: BP 125/73
[2017-04-05 06:27] VITALS: BP 121/60
[2017-04-05 08:10] VITALS: BP 120/70
[2017-04-05] MEDS: DIVALPROEX SODIUM 500 MG ER TABLET PO SCH ×2 (08:52→20:26)
[2017-04-05] MEDS: QUEtiapine FUMARATE 200 MG TABLET PO SCH ×2 (08:52→20:26)
[2017-04-05] MEDS: CloZAPine 100 MG TABLET PO SCH ×2 (08:54→20:26)
[2017-04-05 16:00] VITALS: BP 126/76
[2017-04-06] MEDS: HALOPERIDOL 5 MG TABLET PO PRN (08:16)
[2017-04-06] MEDS: LORazepam 2 MG TABLET PO PRN (08:16)
[2017-04-06] MEDS: DIVALPROEX SODIUM 500 MG ER TABLET PO SCH ×2 (08:16→20:39)
[2017-04-06] MEDS: QUEtiapine FUMARATE 200 MG TABLET PO SCH ×2 (08:16→20:39)
[2017-04-06] MEDS: CloZAPine 100 MG TABLET PO SCH ×2 (08:17→20:39)
[2017-04-06 08:41] VITALS: BP 115/68
[2017-04-06 16:00] VITALS: BP 121/66
[2017-04-07 06:57] VITALS: BP 115/72
[2017-04-07 08:17] LABS: BASOPHILS % (AUTO) 0.3 % (0.0-2.0); EOSINOPHILS % (AUTO) 2.7 % (1.0-6.0); HEMATOCRIT 43.8 % (41-53); HEMOGLOBIN 14.4 g/dL (13.5-17.5); LYMPHOCYTES # (AUTO) 1.7 K/uL (1.0-4.8); LYMPHOCYTES % (AUTO) 23.7 % (22.0-44.0); MEAN CORPUSCULAR VOLUME 88 fL (80-100); MONOCYTES # (AUTO) 0.7 K/uL (0.1-1.0); MONOCYTES % (AUTO) 9.2 % (2.0-9.0); NEUTROPHILS # (AUTO) 4.7 K/uL (1.8-7.7); NEUTROPHILS % (AUTO) 64.1 % (40.0-70.0); PLATELET COUNT (AUTO) 167 K/uL (150-450); RED BLOOD CELL COUNT(AUTO) 4.98 MIL/uL (4.50-5.90); RED CELL DISTRIBUTION WIDTH 14.7 % (11.5-14.5); WHITE BLOOD COUNT (AUTO) 7.3 K/uL (4.5-11.0)
[2017-04-07 08:41] VITALS: BP_SYST 119; BP_SYST 93; BP_DIAS 50; BP_DIAS 57
[2017-04-07] MEDS: CloZAPine 100 MG TABLET PO SCH ×2 (08:45→20:25)
[2017-04-07] MEDS: DIVALPROEX SODIUM 500 MG ER TABLET PO SCH ×2 (08:45→20:26)
[2017-04-07] MEDS: QUEtiapine FUMARATE 200 MG TABLET PO SCH ×2 (08:46→20:26)
[2017-04-07 08:51] LABS: ALANINE AMINOTRANSFERASE 108 U/L (12-78); ALBUMIN 3.4 g/dL (3.4-5.0); ANION GAP 15 mmol/L (8-16); ASPARTATE AMINOTRANSFERASE 43 U/L (15-37); BILIRUBIN,TOTAL 0.3 mg/dL (0.1-1.0); CALCIUM, TOTAL 8.7 mg/dL (8.8-10.5); CARBON DIOXIDE 23 mmol/L (22-29); CHLORIDE 104 mmol/L (98-107); CREATINE KINASE MB 1.1 ng/mL (0-5); CREATINE KINASE, TOTAL 150 U/L (39-308); CREATININE 1.06 mg/dL (0.60-1.30); GLOMERULAR FILTR. RATE CALC > 60 mL/min (>60); POTASSIUM 3.6 mmol/L (3.5-5.1); SODIUM SERUM 142 mmol/L (136-145); TOTAL PROTEIN, SERUM 7.4 g/dL (6.4-8.2); UREA NITROGEN, BLOOD 17 mg/dL (7-18)
[2017-04-07 16:32] VITALS: BP 113/60
[2017-04-08 06:30] VITALS: BP 110/61
[2017-04-08] MEDS: DIVALPROEX SODIUM 500 MG ER TABLET PO SCH ×2 (08:48→20:42)
[2017-04-08] MEDS: CloZAPine 100 MG TABLET PO SCH ×2 (08:48→20:43)
[2017-04-08] MEDS: QUEtiapine FUMARATE 200 MG TABLET PO SCH ×2 (08:48→20:42)
[2017-04-08 09:18] VITALS: BP 128/78
[2017-04-08 16:08] VITALS: BP 115/68
[2017-04-09 05:16] VITALS: BP 122/72
[2017-04-09 08:11] VITALS: BP 130/67
[2017-04-09] MEDS: DIVALPROEX SODIUM 500 MG ER TABLET PO SCH ×2 (09:14→20:12)
[2017-04-09] MEDS: QUEtiapine FUMARATE 200 MG TABLET PO SCH ×2 (09:14→20:12)
[2017-04-09] MEDS: CloZAPine 100 MG TABLET PO SCH ×2 (09:14→20:12)
[2017-04-09 16:00] VITALS: BP 125/88
[2017-04-10 07:09] VITALS: BP 123/89
[2017-04-10 08:11] VITALS: BP 134/87
[2017-04-10] MEDS: CloZAPine 100 MG TABLET PO SCH ×2 (08:55→20:27)
[2017-04-10] MEDS: QUEtiapine FUMARATE 200 MG TABLET PO SCH ×2 (08:55→20:27)
[2017-04-10] MEDS: DIVALPROEX SODIUM 500 MG ER TABLET PO SCH ×2 (08:55→20:27)
[2017-04-10 16:00] VITALS: BP 123/77
[2017-04-11 06:45] VITALS: BP 139/61
[2017-04-11 08:10] VITALS: BP 149/63
[2017-04-11] MEDS: CloZAPine 100 MG TABLET PO SCH ×2 (08:48→20:34)
[2017-04-11] MEDS: QUEtiapine FUMARATE 200 MG TABLET PO SCH ×2 (08:48→20:34)
[2017-04-11] MEDS: DIVALPROEX SODIUM 500 MG ER TABLET PO SCH ×2 (08:48→20:34)
[2017-04-11 16:00] VITALS: BP 124/71
[2017-04-12 06:25] VITALS: BP 131/74
[2017-04-12 08:43] VITALS: BP 124/74
[2017-04-12] MEDS: QUEtiapine FUMARATE 200 MG TABLET PO SCH ×2 (08:51→20:54)
[2017-04-12] MEDS: DIVALPROEX SODIUM 500 MG ER TABLET PO SCH ×2 (08:51→20:55)
[2017-04-12] MEDS: CloZAPine 100 MG TABLET PO SCH ×2 (08:51→20:55)
[2017-04-12] MEDS ORDERED: LORazepam 2 MG/ML VIAL IM ONE (16:15)
[2017-04-12] MEDS ORDERED: HALOPERIDOL LACTATE 5 MG/ML VIAL IM ONE (16:15)
[2017-04-12] MEDS ORDERED: DiphenhydrAMINE HCL 50 MG/ML VIAL IM ONE (16:15)
[2017-04-12 16:36] VITALS: BP 115/82
[2017-04-13 00:25] VITALS: BP 150/80
[2017-04-13 08:11] VITALS: BP 134/86
[2017-04-13] MEDS: DIVALPROEX SODIUM 500 MG ER TABLET PO SCH ×2 (09:51→20:35)
[2017-04-13] MEDS: CloZAPine 100 MG TABLET PO SCH ×2 (09:51→20:35)
[2017-04-13] MEDS: QUEtiapine FUMARATE 200 MG TABLET PO SCH ×2 (09:51→20:35)
[2017-04-13 16:00] VITALS: BP 124/72
[2017-04-14 06:30] VITALS: BP 123/82
[2017-04-14 08:11] LABS: BASOPHILS % (AUTO) 0.5 % (0.0-2.0); EOSINOPHILS % (AUTO) 4.3 % (1.0-6.0); HEMATOCRIT 44.4 % (41-53); HEMOGLOBIN 14.7 g/dL (13.5-17.5); LYMPHOCYTES # (AUTO) 2.3 K/uL (1.0-4.8); MEAN CORPUSCULAR HEMOGLOBIN 28.8 pg (26.0-34.0); MEAN CORPUSCULAR HGB CONC 33.1 G/dL (31.0-37.0); MEAN CORPUSCULAR VOLUME 87 fL (80-100); MONOCYTES # (AUTO) 0.6 K/uL (0.1-1.0); MONOCYTES % (AUTO) 9.5 % (2.0-9.0); NEUTROPHILS # (AUTO) 2.9 K/uL (1.8-7.7); NEUTROPHILS % (AUTO) 47.7 % (40.0-70.0); PLATELET COUNT (AUTO) 183 K/uL (150-450); RED BLOOD CELL COUNT(AUTO) 5.09 MIL/uL (4.50-5.90); RED CELL DISTRIBUTION WIDTH 14.4 % (11.5-14.5); WHITE BLOOD COUNT (AUTO) 6.2 K/uL (4.5-11.0)
[2017-04-14 08:20] VITALS: BP 132/73
[2017-04-14] MEDS: DIVALPROEX SODIUM 500 MG ER TABLET PO SCH ×2 (09:28→20:05)
[2017-04-14] MEDS: CloZAPine 100 MG TABLET PO SCH ×2 (09:28→20:06)
[2017-04-14] MEDS: QUEtiapine FUMARATE 200 MG TABLET PO SCH ×2 (09:28→20:06)
[2017-04-14 16:00] VITALS: BP 134/85
[2017-04-15 06:27] VITALS: BP 129/83
[2017-04-15 08:11] VITALS: BP 115/73
[2017-04-15] MEDS: CloZAPine 100 MG TABLET PO SCH ×2 (09:20→20:30)
[2017-04-15] MEDS: QUEtiapine FUMARATE 200 MG TABLET PO SCH ×2 (09:20→20:30)
[2017-04-15] MEDS: DIVALPROEX SODIUM 500 MG ER TABLET PO SCH ×2 (09:21→20:31)
[2017-04-15 16:11] VITALS: BP 135/71
[2017-04-16 06:11] VITALS: BP 133/76
[2017-04-16] MEDS: DIVALPROEX SODIUM 500 MG ER TABLET PO SCH ×2 (08:30→20:39)
[2017-04-16] MEDS: QUEtiapine FUMARATE 200 MG TABLET PO SCH ×2 (08:31→20:39)
[2017-04-16] MEDS: CloZAPine 100 MG TABLET PO SCH ×2 (08:31→20:39)
[2017-04-16 08:35] VITALS: BP 127/67
[2017-04-16 16:00] VITALS: BP 134/87
[2017-04-17 06:23] VITALS: BP 107/69
[2017-04-17 08:27] VITALS: BP 117/70
[2017-04-17] MEDS: CloZAPine 100 MG TABLET PO SCH ×2 (09:36→20:43)
[2017-04-17] MEDS: DIVALPROEX SODIUM 500 MG ER TABLET PO SCH ×2 (09:36→20:43)
[2017-04-17] MEDS: QUEtiapine FUMARATE 200 MG TABLET PO SCH ×2 (09:36→20:43)
[2017-04-17 16:10] VITALS: BP 136/76
[2017-04-18 00:43] VITALS: BP 139/87
[2017-04-18 08:18] LABS: ANION GAP 7 mmol/L (8-16); CARBON DIOXIDE 29 mmol/L (22-29); CHLORIDE 103 mmol/L (98-107); CREATININE 1.07 mg/dL (0.60-1.30); POTASSIUM 3.7 mmol/L (3.5-5.1); SODIUM SERUM 139 mmol/L (136-145); UREA NITROGEN, BLOOD 15 mg/dL (7-18)
[2017-04-18 08:19] LABS: ALANINE AMINOTRANSFERASE 88 U/L (12-78); ALBUMIN 3.3 g/dL (3.4-5.0); ASPARTATE AMINOTRANSFERASE 45 U/L (15-37); BILIRUBIN,TOTAL 0.3 mg/dL (0.1-1.0); CALCIUM, TOTAL 8.5 mg/dL (8.8-10.5); GLOMERULAR FILTR. RATE CALC > 60 mL/min (>60); TOTAL PROTEIN, SERUM 6.8 g/dL (6.4-8.2)
[2017-04-18 08:34] VITALS: BP 111/89
[2017-04-18] MEDS: CloZAPine 100 MG TABLET PO SCH ×2 (08:44→20:36)
[2017-04-18] MEDS: QUEtiapine FUMARATE 200 MG TABLET PO SCH ×2 (08:44→20:35)
[2017-04-18] MEDS: DIVALPROEX SODIUM 500 MG ER TABLET PO SCH ×2 (08:44→20:35)
[2017-04-18 16:00] VITALS: BP 117/74
[2017-04-19 06:43] VITALS: BP 119/91
[2017-04-19 08:11] VITALS: BP 108/58
[2017-04-19] MEDS: CloZAPine 100 MG TABLET PO SCH ×2 (08:48→20:31)
[2017-04-19] MEDS: DIVALPROEX SODIUM 500 MG ER TABLET PO SCH ×2 (08:48→20:31)
[2017-04-19] MEDS: QUEtiapine FUMARATE 200 MG TABLET PO SCH ×2 (08:48→20:31)
[2017-04-19 16:00] VITALS: BP 121/68
[2017-04-20 06:04] VITALS: BP 139/83
[2017-04-20 08:11] VITALS: BP 134/72
[2017-04-20] MEDS: CloZAPine 100 MG TABLET PO SCH ×2 (08:51→20:25)
[2017-04-20] MEDS: QUEtiapine FUMARATE 200 MG TABLET PO SCH ×2 (08:51→20:25)
[2017-04-20] MEDS: DIVALPROEX SODIUM 500 MG ER TABLET PO SCH ×2 (08:51→20:25)
[2017-04-20 16:00] VITALS: BP 117/75
[2017-04-21 01:43] VITALS: BP 124/75
[2017-04-21 08:27] LABS: BASOPHILS % (AUTO) 0.8 % (0.0-2.0); EOSINOPHILS % (AUTO) 4.2 % (1.0-6.0); HEMATOCRIT 42.6 % (41-53); HEMOGLOBIN 14.1 g/dL (13.5-17.5); LYMPHOCYTES % (AUTO) 36.8 % (22.0-44.0); MEAN CORPUSCULAR HEMOGLOBIN 29.2 pg (26.0-34.0); MEAN CORPUSCULAR HGB CONC 33.1 G/dL (31.0-37.0); MEAN CORPUSCULAR VOLUME 88 fL (80-100); MONOCYTES # (AUTO) 0.4 K/uL (0.1-1.0); NEUTROPHILS # (AUTO) 2.7 K/uL (1.8-7.7); NEUTROPHILS % (AUTO) 51.2 % (40.0-70.0); PLATELET COUNT (AUTO) 162 K/uL (150-450); RED BLOOD CELL COUNT(AUTO) 4.83 MIL/uL (4.50-5.90); RED CELL DISTRIBUTION WIDTH 14.9 % (11.5-14.5); WHITE BLOOD COUNT (AUTO) 5.3 K/uL (4.5-11.0)
[2017-04-21 08:32] VITALS: BP 112/74
[2017-04-21] MEDS: QUEtiapine FUMARATE 200 MG TABLET PO SCH ×2 (09:10→20:25)
[2017-04-21] MEDS: CloZAPine 100 MG TABLET PO SCH ×2 (09:10→20:25)
[2017-04-21] MEDS: DIVALPROEX SODIUM 500 MG ER TABLET PO SCH ×2 (09:10→20:25)
[2017-04-21 16:00] VITALS: BP 115/73
[2017-04-22 05:05] VITALS: BP 125/79
[2017-04-22] MEDS: DIVALPROEX SODIUM 500 MG ER TABLET PO SCH ×2 (08:05→20:48)
[2017-04-22] MEDS: QUEtiapine FUMARATE 200 MG TABLET PO SCH ×2 (08:05→20:47)
[2017-04-22] MEDS: CloZAPine 100 MG TABLET PO SCH ×2 (08:05→20:47)
[2017-04-22 09:25] VITALS: BP 136/64
[2017-04-22 16:08] VITALS: BP 115/72
[2017-04-23 06:01] VITALS: BP 118/76
[2017-04-23 08:09] VITALS: BP 110/80
[2017-04-23] MEDS: DIVALPROEX SODIUM 500 MG ER TABLET PO SCH ×2 (09:06→20:40)
[2017-04-23] MEDS: QUEtiapine FUMARATE 200 MG TABLET PO SCH ×2 (09:06→20:40)
[2017-04-23] MEDS: CloZAPine 100 MG TABLET PO SCH ×2 (09:06→20:40)
[2017-04-23 16:00] VITALS: BP 121/70
[2017-04-24 03:14] VITALS: BP 118/87
[2017-04-24 08:11] VITALS: BP 120/67
[2017-04-24] MEDS: CloZAPine 100 MG TABLET PO SCH ×2 (08:43→20:20)
[2017-04-24] MEDS: DIVALPROEX SODIUM 500 MG ER TABLET PO SCH ×2 (08:43→20:20)
[2017-04-24] MEDS: QUEtiapine FUMARATE 200 MG TABLET PO SCH ×2 (08:43→20:20)
[2017-04-24 16:00] VITALS: BP 115/69
[2017-04-25 06:10] VITALS: BP 122/68
[2017-04-25 08:36] VITALS: BP 115/70
[2017-04-25] MEDS: DIVALPROEX SODIUM 500 MG ER TABLET PO SCH ×2 (09:12→20:20)
[2017-04-25] MEDS: CloZAPine 100 MG TABLET PO SCH ×2 (09:12→20:20)
[2017-04-25] MEDS: QUEtiapine FUMARATE 200 MG TABLET PO SCH ×2 (09:13→20:20)
[2017-04-25 16:00] VITALS: BP 118/72
[2017-04-26 05:30] VITALS: BP 117/68
[2017-04-26] MEDS: QUEtiapine FUMARATE 200 MG TABLET PO SCH ×2 (08:20→20:32)
[2017-04-26] MEDS: LORazepam 2 MG TABLET PO PRN (08:20)
[2017-04-26] MEDS: DIVALPROEX SODIUM 500 MG ER TABLET PO SCH ×2 (08:20→20:32)
[2017-04-26] MEDS: CloZAPine 100 MG TABLET PO SCH ×2 (08:21→20:32)
[2017-04-26] MEDS: HALOPERIDOL 5 MG TABLET PO PRN (08:21)
[2017-04-26 08:30] VITALS: BP 115/74
[2017-04-26 16:12] VITALS: BP 111/69
[2017-04-27 06:57] VITALS: BP 117/71
[2017-04-27 08:21] VITALS: BP 122/65
[2017-04-27] MEDS: CloZAPine 100 MG TABLET PO SCH ×2 (09:44→20:29)
[2017-04-27] MEDS: QUEtiapine FUMARATE 200 MG TABLET PO SCH ×2 (09:44→20:29)
[2017-04-27] MEDS: DIVALPROEX SODIUM 500 MG ER TABLET PO SCH ×2 (09:44→20:29)
[2017-04-27 16:00] VITALS: BP 118/67
[2017-04-28 06:30] VITALS: BP 115/69
[2017-04-28 08:22] LABS: BASOPHILS % (AUTO) 0.7 % (0.0-2.0); EOSINOPHILS % (AUTO) 4.1 % (1.0-6.0); HEMATOCRIT 44.2 % (41-53); LYMPHOCYTES # (AUTO) 1.7 K/uL (1.0-4.8); LYMPHOCYTES % (AUTO) 37.1 % (22.0-44.0); MEAN CORPUSCULAR HEMOGLOBIN 29.8 pg (26.0-34.0); MEAN CORPUSCULAR VOLUME 88 fL (80-100); MONOCYTES # (AUTO) 0.4 K/uL (0.1-1.0); MONOCYTES % (AUTO) 7.8 % (2.0-9.0); NEUTROPHILS # (AUTO) 2.3 K/uL (1.8-7.7); NEUTROPHILS % (AUTO) 50.3 % (40.0-70.0); PLATELET COUNT (AUTO) 141 K/uL (150-450); RED BLOOD CELL COUNT(AUTO) 5.04 MIL/uL (4.50-5.90); RED CELL DISTRIBUTION WIDTH 14.8 % (11.5-14.5); WHITE BLOOD COUNT (AUTO) 4.6 K/uL (4.5-11.0)
[2017-04-28 08:39] VITALS: BP 110/65
[2017-04-28 08:56] LABS: ALANINE AMINOTRANSFERASE 97 U/L (12-78); ALBUMIN 3.8 g/dL (3.4-5.0); ANION GAP 11 mmol/L (8-16); ASPARTATE AMINOTRANSFERASE 60 U/L (15-37); BILIRUBIN,TOTAL 0.4 mg/dL (0.1-1.0); CALCIUM, TOTAL 8.9 mg/dL (8.8-10.5); CARBON DIOXIDE 25 mmol/L (22-29); CHLORIDE 104 mmol/L (98-107); GLOMERULAR FILTR. RATE CALC > 60 mL/min (>60); POTASSIUM 3.7 mmol/L (3.5-5.1); SODIUM SERUM 140 mmol/L (136-145); TOTAL PROTEIN, SERUM 7.3 g/dL (6.4-8.2); UREA NITROGEN, BLOOD 17 mg/dL (7-18)
[2017-04-28] MEDS: CloZAPine 100 MG TABLET PO SCH ×2 (09:31→20:25)
[2017-04-28] MEDS: DIVALPROEX SODIUM 500 MG ER TABLET PO SCH ×2 (09:31→20:25)
[2017-04-28] MEDS: QUEtiapine FUMARATE 200 MG TABLET PO SCH ×2 (09:31→20:26)
[2017-04-28 16:00] VITALS: BP 113/75
[2017-04-29 01:36] VITALS: BP 109/68
[2017-04-29 08:10] VITALS: BP 107/60
[2017-04-29] MEDS: CloZAPine 100 MG TABLET PO SCH ×2 (08:24→20:18)
[2017-04-29] MEDS: QUEtiapine FUMARATE 200 MG TABLET PO SCH ×2 (08:24→20:18)
[2017-04-29] MEDS: DIVALPROEX SODIUM 500 MG ER TABLET PO SCH ×2 (08:24→20:18)
[2017-04-29 16:08] VITALS: BP 110/62
[2017-04-30 05:50] VITALS: BP 116/66
[2017-04-30 08:39] VITALS: BP 133/84
[2017-04-30] MEDS: DIVALPROEX SODIUM 500 MG ER TABLET PO SCH ×2 (09:27→20:20)
[2017-04-30] MEDS: QUEtiapine FUMARATE 200 MG TABLET PO SCH ×2 (09:27→20:20)
[2017-04-30] MEDS: CloZAPine 100 MG TABLET PO SCH ×2 (09:28→20:20)
[2017-04-30 16:11] VITALS: BP 117/70
[2017-05-01 00:25] VITALS: BP 138/89
[2017-05-01 08:46] VITALS: BP 119/68
[2017-05-01] MEDS: DIVALPROEX SODIUM 500 MG ER TABLET PO SCH ×2 (09:29→20:40)
[2017-05-01] MEDS: QUEtiapine FUMARATE 200 MG TABLET PO SCH ×2 (09:29→20:40)
[2017-05-01] MEDS: CloZAPine 100 MG TABLET PO SCH ×2 (09:30→20:40)
[2017-05-01 16:30] VITALS: BP 135/69
[2017-05-02 06:06] VITALS: BP 104/65
[2017-05-02] MEDS: DIVALPROEX SODIUM 500 MG ER TABLET PO SCH ×2 (08:55→21:04)
[2017-05-02] MEDS: QUEtiapine FUMARATE 200 MG TABLET PO SCH ×2 (08:55→21:04)
[2017-05-02] MEDS: CloZAPine 100 MG TABLET PO SCH ×2 (08:55→21:04)
[2017-05-02 16:00] VITALS: BP 116/67
[2017-05-03 06:00] VITALS: BP 129/86
[2017-05-03] MEDS ORDERED: CLOZ100 PO ×2 (07:40)
[2017-05-03] MEDS ORDERED: QUET200T PO (07:40)
[2017-05-03] MEDS: DIVALPROEX SODIUM 500 MG ER TABLET PO SCH (08:42)
[2017-05-03] MEDS: QUEtiapine FUMARATE 200 MG TABLET PO SCH (08:42)
[2017-05-03] MEDS: CloZAPine 100 MG TABLET PO SCH (08:43)
[2017-05-03 09:29] VITALS: BP 134/72
== END 2017-05-03 11:45 | DRG 885 ==
LOC: EMS 02:06 → B3A 02:30
PROVIDERS: ADMIT Psychiatry & Neurology Psychiatry
DX: F25.0 Schizoaffective disorder, bipolar type (principal); F32.9 Major depressive disorder, single episode, unspecified; F29 Unspecified psychosis not due to a substance or known physiological condition; D69.6 Thrombocytopenia, unspecified; E78.5 Hyperlipidemia, unspecified; E83.51 Hypocalcemia; E87.6 Hypokalemia; I10 Essential (primary) hypertension; K59.00 Constipation, unspecified; Z91.14 Patient's other noncompliance with medication regimen; F20.0 Paranoid schizophrenia; Z28.21 Immunization not carried out because of patient refusal; J34.89 Other specified disorders of nose and nasal sinuses; R10.13 Epigastric pain; J30.9 Allergic rhinitis, unspecified; I95.9 Hypotension, unspecified; R51 Headache; D72.819 Decreased white blood cell count, unspecified; R79.89 Other specified abnormal findings of blood chemistry; J02.9 Acute pharyngitis, unspecified; Z56.0 Unemployment, unspecified; W49.09XA Other specified item causing external constriction, initial encounter; Z53.20 Procedure and treatment not carried out because of patient's decision for unspecified reasons
CPT/HCPCS: 76700; 83735; 84550; 87081; 99285; G0480